=== PATIENT | female | born 1965 | race Caucasian/White ===

== ENCOUNTER 2019-04-21 06:26 | Emergency (ER) | payer MEDICAID, MEDICARE, OTHER, SELFPAY ==
[~2019-04-21] VITALS: Ht 160 cm; Wt 67.6 kg
[2019-04-21 06:31] VITALS: BP 149/90
--- NOTE | 2019-04-21 06:47 | NUR ---
BEDSIDE REPORT FROM DENIS RN, PT RESTING IN [facility]. [place] AT BEDSIDE.
--- NOTE | 2019-04-21 07:38 | NUR ---
PT GIVEN DC INSTRUCTIONS, PT SCHEDULED FOR COLONOSCOPY AT [facility] AT 9AM. PT TO TAKE CAB THERE RIGHT NOW, DEMONSTRATES UNDERSTANDING.
== END 2019-04-21 07:41 ==
LOC: ED 07:35
DX: R63.0 Anorexia (principal); Z88.0 Allergy status to penicillin
CPT/HCPCS: 99281